=== PATIENT | female | born 1990 | race Caucasian/White ===

== ENCOUNTER 2022-01-06 22:00 | Emergency (ER) | payer OTHER, SELFPAY ==
[2022-01-06 22:34] VITALS: BP 111/67; PULSE 72; RESP 16; TEMP 36.4; O2SAT 100
--- NOTE | 2022-01-06 22:52 | PC.NURSE ---
patient refuses x-ray and decided not to be seen
== END 2022-01-06 22:52 | disposition left against medical advice (07) ==
LOC: ANHED 23:13
PROVIDERS: PCP Family Medicine
DX: S89.92XA Unspecified injury of left lower leg, initial encounter (principal)
CPT/HCPCS: 99199

== ENCOUNTER → 2022-01-07 12:55 | Outpatient (CLI) | payer SELFPAY ==
--- NOTE | ~2022-01-07 | MR_ITS ---
EXAMINATION: MR knee LT wo con DATE: 01/07/2022 14:07 INDICATION: Sports injury with meniscal tear at the left knee presenting with posterior and lateral l eft knee pain and swelling. TECHNIQUE: Magnetic resonance imaging (MRI) of the left knee was performed without intravenous contra st. Sequences included coronal PD-weighted FSE, coronal PD-weighted FS FSE, sagittal T2-weighted FSE , sagittal PD-weighted FS FSE and axial PD weighted fat saturated FSE. COMPARISON: None. FINDINGS: Medial compartment: Complex medial meniscal tear including a laterally displaced bucket-handle tear flap which extends an teroposteriorly over the intercondylar eminence of the intercondylar notch. Longitudinal horizontal t ear plane in the remaining nondisplaced meniscal body and posterior horn. There is a second small men iscal flap arising from the remaining meniscal body. Articular cartilage is normal. No marrow edema a long the posterior rim of the medial tibial plateau without evident fracture line consistent with a b one contusion. Lateral compartment: Lateral meniscus is normal. Marrow edema surrounding a minimally depressed impaction fracture at the lateral sulcus of the lateral femoral condyle. There is an overlying chondral injury with nondisplace d chondral flap. Additional marrow edema along the posterior rim of the lateral tibial plateau where there is an additional small nondisplaced fracture line along the posterior rim. Partial-thickness ch ondral fissuring at the posterior medial aspect of the lateral tibial plateau. Patellofemoral compartment: Articular cartilage is normal. Ligaments and tendons: Oblique tear of the anterior cruciate ligament. Cyclops lesion with balled up torn distal portion of the ligament extending anteriorly at the intercondylar notch. The posterior cruciate ligament is norm al. There is increased fluid signal extending proximally and distally along the otherwise normal-appe aring medial collateral ligament which could be either reactive edema related to the meniscal tear or related to low-grade sprain of the medial collateral ligament. Thickening and mild increased signal of the proximal fibular collateral ligament with mild surrounding edema consistent with moderate grad e sprain/partial tear. Extensor mechanism is normal. Mild tendinopathy without discrete tear at the d istal semimembranosus tendon. The remaining visualized medial and lateral hamstring tendons as well a s the iliotibial band are normal. Fluid: Moderate-sized left knee joint effusion with suprapatellar plical band. No loose osteochondral bodies identified. Very small Bojorquez's cyst. Mild soft tissue edema surrounding the knee. IMPRESSION: 1. Constellation of findings consistent with anterior tibial subluxation injury with complete tear of the anterior cruciate ligament, moderate grade sprain/partial tear of the fibular collateral ligamen t and possible low-grade sprain of the medial collateral ligament. 2. Complex medial meniscal tear including a displaced bucket-handle flap. 3. Nondisplaced impaction fractures along the posterior rim of the lateral tibial plateau and at the lateral sulcus of the lateral femoral condyle and bone contusion without discrete fracture at the pos terior rim of the medial tibial plateau. 4. Moderate-sized left knee joint effusion and very small Bojorquez's cyst. Reviewed, dictated and finalized at location A. IMPRESSION: 1. Constellation of findings consistent with anterior tibial subluxation injury with complete tear of the anterior cruciate ligament, moderate grade sprain/pa rtial tear of the fibular collateral ligament and possible low-grade sprain of the medial collateral ligament. 2. Complex medial meniscal tear including a displaced bucke
== END ==
DX: S89.92XA Unspecified injury of left lower leg, initial encounter (principal); S83.232A Complex tear of medial meniscus, current injury, left knee, initial encounter; S83.212A Bucket-handle tear of medial meniscus, current injury, left knee, initial encounter; S82.145A Nondisplaced bicondylar fracture of left tibia, initial encounter for closed fracture; S72.425A Nondisplaced fracture of lateral condyle of left femur, initial encounter for closed fracture; M25.462 Effusion, left knee; M71.22 Synovial cyst of popliteal space [Baker], left knee
CPT/HCPCS: 99199; 73721

== ENCOUNTER 2024-04-01 07:50 | Outpatient (CLI) | payer BC, SELFPAY ==
--- NOTE | ~2024-04-01 | US_ITS ---
US abdomen complete EXAMINATION: US Abdomen Complete INDICATION: Elevated liver enzymes PROCEDURE: Realtime High Resolution abdomen ultrasound. COMPARISON: No prior studies for comparison FINDINGS: Gallbladder within normal limits. No gallstones, pericholecystic fluid, gallbladder wall t hickening or biliary dilatation. Common bile duct measures 4.5 mm. Liver echotexture within normal limits without focal mass. Pancreas within normal limits. Pancreati c tail is obscured by bowel gas. Spleen is upper normal measuring 12.5 cm. Renal echotexture is with in normal limits bilaterally without hydronephrosis, contour deforming mass or renal stone. Right kid rosy measures 9.4 cm. Left kidney measures 9.3 cm. Visualized aspects of the aorta and IVC are within normal limits. Portal vein is patent. No sonograph ic Watkins's sign indicated by the technologist. IMPRESSION: 1: Normal abdominal ultrasound. Reviewed, dictated and finalized at location B.
== END 2024-04-01 07:51 | disposition home or self-care (01) ==
LOC: MICIMG 07:52
PROVIDERS: PCP Nurse Practitioner Family; Visit Provider Nurse Practitioner Family
DX: R74.01 Elevation of levels of liver transaminase levels (principal)
CPT/HCPCS: 76700

== ENCOUNTER 2024-04-13 08:19 | Outpatient (CLI) | payer BC, SELFPAY ==
[2024-04-13 09:57] LABS: Toxigenic C. Diff NEGATIVE (NEGATIVE)
== END 2024-04-13 08:20 | disposition home or self-care (01) ==
LOC: ANHLAB 08:21
PROVIDERS: PCP Nurse Practitioner Family; Visit Provider Nurse Practitioner Family
DX: R19.7 Diarrhea, unspecified (principal)
CPT/HCPCS: 87177; 87209; 87493